=== PATIENT | male | born 1955 | race Two or more races ===

== ENCOUNTER 2020-04-02 12:09 | Inpatient (IN) | payer MEDICAID, OTHER ==
[~2020-04-02] VITALS: Ht 160 cm; Wt 65.0 kg
[2020-04-02 13:40] LABS: Eosinophils # (auto) 0 10 ^3/uL (0-0.8); Hemoglobin 14.7 g/dL (13.5-17.5); Lymphocytes # (auto) 1.1 10 ^3/uL (0.4-5.4); Mean Corpuscular Hemoglobin 34.9 pg (28.0-32.0); Monocytes # (auto) 0.6 10 ^3/uL (0-1.3); Neutrophils # (auto) 4.4 10 ^3/uL (1.6-8.6); Nucleated Red Blood Cells % 0.1 %; White Blood Cell 6.1 10^3/uL (4.4-10.8)
[2020-04-02 13:42] LABS: Basophils # (auto) 0.1 10 ^3/uL (0-0.2); Basophils % (auto) 1.3 % (0.0-2.0); Eosinophils % (auto) 0.5 % (0.0-7.0); Hematocrit 42.7 % (41.0-53.0); Lymphocytes % (auto) 17.4 % (10.0-50.0); Mean Corpuscular Hgb Conc. 34.3 g/dL (32.0-36.0); Mean Corpuscular Volume 101.9 fL (80.0-100.0); Monocytes % (auto) 9.3 % (0.0-12.0); Neutrophils % (auto) 71.5 % (37.0-80.0); Platelet Count (auto) 126 10^3/uL (140-450); Red Blood Cells 4.19 10^6/uL (4.5-5.90); Red Cell Distribution Width 14.1 % (11.8-14.3)
[2020-04-02 14:03] LABS: Alanine Aminotransferase 77 U/L (16-61); Albumin 3.5 g/dL (3.4-5.0); Anion Gap 7 (5-15); Aspartate Aminotransferase 94 U/L (15-37); BUN/Creatinine Ratio 14.1; Blood Urea Nitrogen 9 mg/dL (7-18); Calcium 8.1 mg/dL (8.5-10.1); Carbon Dioxide 27 mmol/L (21-32); Chloride 106 mmol/L (98-107); GFR African American 161 mL/min; GFR Non-African American 133 mL/min; Glucose 99 mg/dL (74-106); Magnesium 2.3 mg/dL (1.6-2.6); Potassium 3.7 mmol/L (3.5-5.1); Sodium 140 mmol/L (136-145)
[2020-04-02 14:07] LABS: Alkaline Phosphatase 91 U/L (45-117); Bilirubin, Total 1.1 mg/dL (0.2-1.0); Total Protein 6.9 g/dL (6.4-8.2)
[2020-04-02 15:18] LABS: Urine Bacteria NONE SEEN /hpf (None Seen); Urine Blood Negative /uL (Negative); Urine Mucus FEW (None Seen); Urine WBC 2 /hpf (0 - 3)
[2020-04-02] MEDS ORDERED: CALCIUM GLUC 4.65meq/50ml D5AE 50 ML IV ONE (16:45)
[2020-04-02] MEDS ORDERED: NITROGLYCERIN 0.4 MG SL TAB SL PRN ×2 (16:45→17:00)
[2020-04-02] MEDS ORDERED: MORPHINE SULF INJ 2 MG/ML SYRINGE 1ML IV PRN ×3 (16:45→17:00)
[2020-04-02] MEDS ORDERED: PANTOPRAZOLE 40 MG/10 ML VIAL INJ IV ONE (17:00)
[2020-04-02] MEDS ORDERED: hydrALAZINE HCL 20 MG/ML VL IV PRN (17:00)
[2020-04-02] MEDS ORDERED: FOLIC ACID 1 MG TAB PO ONE (17:00)
[2020-04-02] MEDS ORDERED: ONDANSETRON HCL 4 MG/2 ML VIAL IV PRN (17:00)
[2020-04-02] MEDS ORDERED: LORazepam 0.5 MG TAB PO PRN (17:00)
[2020-04-02] MEDS ORDERED: MULTIPLE VITAMINS W/ MINERALS TAB PO ONE (17:00)
[2020-04-02] MEDS ORDERED: HYDROcodone-ACET 5/325MG TAB PO PRN (17:00)
[2020-04-02] MEDS ORDERED: DOCUSATE SOD 100 MG CAP PO PRN (17:00)
[2020-04-02] MEDS ORDERED: ACETAMINOPHEN 325 MG TAB PO PRN (17:00)
[2020-04-02] MEDS ORDERED: THIAMINE HCL 100 MG TAB PO ONE (17:00)
[2020-04-02] MEDS: SUCRALFATE 1 GM TAB PO SCH ×2 (17:37→21:27)
--- NOTE | 2020-04-02 20:30 | NUR ---
Telemetry admit from [facility] admitted to Telemetry unit after SBAR received. Patient oriented to Haven Denise RN primary RN, unit, room, bed, and unit policies regarding patient care and visiting hours. Patient now on continuous telemetry monitoring, tele box #2. Patient weighed by bedscale and encouraged to call if they need something. All questions and concerns addressed, patient verbalized understanding. Bed is in lowest locked position with bed rails up x2 and call light is within reach of the patient. Bed alarm is armed.
[2020-04-02 20:39] LABS: Cholesterol 129 mg/dL (< 200); HDL Cholesterol 66 mg/dL (40-59); LDL Cholesterol 61 mg/dL (< 100); Triglycerides 82 mg/dL (< 150)
[2020-04-02] MEDS ORDERED: ASPI-543 PO (21:24)
[2020-04-02] MEDS: ATORVASTATIN 20 MG TAB PO SCH (21:27)
[2020-04-02 22:00] VITALS: BP 143/69
[2020-04-02] MEDS ORDERED: PNEUMOCOCCAL VACC POLYS 25 MCG/0.5 ML VIAL IM ONE (22:30)
[2020-04-02] MEDS ORDERED: INFLUENZA QUAD 2020-2021 0.5 ML SYRG IM ONE (22:30)
[2020-04-03 01:10] LABS: Urine Amorphous Crystal FEW /hpf (None Seen); Urine Bacteria FEW /hpf (None Seen); Urine Blood Negative /uL (Negative); Urine Specific Gravity 1.007 (1.001-1.035); Urine WBC 1 /hpf (0 - 3)
[2020-04-03 01:21] LABS: Alcohol, Urine < 3.0 mg/dL (0-10); Amphetamine Screen, Urine NEGATIVE (NEGATIVE); Barbiturate Scree,Urine NEGATIVE (NEGATIVE); Benzodiazephine Screen, Urine NEGATIVE (NEGATIVE); Cannabinoid Screen, Urine NEGATIVE (NEGATIVE); Cocaine Screen, Urine NEGATIVE (NEGATIVE); Opiate Scree,Urine NEGATIVE (NEGATIVE); Phencyclidine Screen, Urine NEGATIVE (NEGATIVE)
--- NOTE | 2020-04-03 03:08 | NUR ---
Patient transferred out: Patient transferred out to room 251A after report given to Mindi FRANCIS. Patient transferred via wheel chair with all of patients belongings and tolerated well.
[2020-04-03 05:00] VITALS: BP 136/83
[2020-04-03] MEDS: SUCRALFATE 1 GM TAB PO SCH ×4 (06:23→21:52)
--- NOTE | 2020-04-03 07:30 | NUR ---
Opening Shift Note Assumed care of patient, awake and alert. No S/S of distress/SOB or pain. Patient reports smoking for 20 years about 1/2 cigarettes a day. Educated on the benefits of smoking cessation and the risks involved with cigarette use. Patient verbalized understanding and appeared to be surprised by the information. Instructed on POC and to call for assist PRN. Will continue to reinforce teaching throughout the day. Bed is in lowest position and the call light is within reach of the patient. Will continue to monitor for changes Q1hr and PRN.
[2020-04-03 08:00] VITALS: BP 134/77
[2020-04-03 09:30] VITALS: BP 134/77
[2020-04-03] MEDS: FOLIC ACID 1 MG TAB PO SCH (10:19)
[2020-04-03] MEDS: ENOXAPARIN SOD 40 MG/0.4 ML SYRINGE SC SCH (10:19)
[2020-04-03] MEDS: ASPirin 81 mg TAB PO SCH (10:19)
[2020-04-03] MEDS: PANTOPRAZOLE 40 MG/10 ML VIAL INJ IV SCH (10:19)
[2020-04-03] MEDS: THIAMINE HCL 100 MG TAB PO SCH (10:20)
[2020-04-03] MEDS: NIFEdipine ER 30 MG TAB PO SCH (10:20)
[2020-04-03] MEDS: MULTIPLE VITAMINS W/ MINERALS TAB PO SCH (10:20)
--- NOTE | 2020-04-03 12:25 | NUR ---
ASSUMED CARE RECEIVED REPORT FROM KOSTA FRANCIS. WILL CONTINUE CARE.
--- NOTE | 2020-04-03 12:35 | NUR ---
AT BEDSIDE DR GUEVARA AT BEDSIDE ROUNDING ON PATIENT
--- NOTE | 2020-04-03 12:37 | NUR ---
Handoff Report given to Liat.
[2020-04-03 12:57] VITALS: BP 144/79
--- NOTE | 2020-04-03 15:26 | NUR ---
SPOKE WITH MD PATIENT C/O RIGHT SIDED CHEST PAIN THAT IS WORSE WHEN HE BREATHES. SPOKE TO DR GUEVARA. ORDERS FOR AN EKG OBTAINED. WILL CARRY OUT AND CONTINUE CARE
--- NOTE | 2020-04-03 15:31 | NUR ---
ss consult Per consult advanced directive info. Patient has been provided with advanced directive. Addendum: 04/03/20 at 1532 by Jessie TELLO Amended: Links added.
--- NOTE | 2020-04-03 15:46 | NUR ---
EKG EKG OBTAINED AND PLACED IN CHART. RIGHT-SIDED CHEST PAIN LASTED APPROXIMATELY TEN MINUTES PER PATIENT. DR GUEVARA NOTIFIED OF EKG INTERPRETATION. AWAITING CARDIOLOGY CONSULT. WILL CONTINUE TO MONITOR Q1H AND PRN.
[2020-04-03 17:01] VITALS: BP 128/71
--- NOTE | 2020-04-03 19:15 | NUR ---
OPENING SHIFT NOTE Assumed care of patient who is alert and oriented, currently on RA with no S/S of distress or SOB noted at this time. POC discussed with patient, all questions answered and patient verbalized understanding. Bed in lowest position, locked, side rials up x2. Call light within reach, patient encouraged to call for assistance as needed. Will continue to monitor PRN/Q1hr.
[2020-04-03] MEDS: ATORVASTATIN 20 MG TAB PO SCH (21:52)
[2020-04-03 22:00] VITALS: BP 123/71
[2020-04-04 05:50] VITALS: BP 115/71
[2020-04-04] MEDS: SUCRALFATE 1 GM TAB PO SCH ×4 (06:30→22:00)
--- NOTE | 2020-04-04 07:00 | NUR ---
Opening Shift Note Assumed care of patient, awake and alert watching TV upon entering the room. No S/S of distress/SOB or pain. 300 mL of urine noted in the urinal. Instructed on POC and to call for assist PRN. Bed is in lowest position and the call light is within reach of the patient. Will continue to monitor for changes Q1hr and PRN.
[2020-04-04 07:11] LABS: Eosinophils # (auto) 0.1 10 ^3/uL (0-0.8); Neutrophils # (auto) 3.1 10 ^3/uL (1.6-8.6); Nucleated Red Blood Cells % 0.1 %
[2020-04-04 07:12] LABS: Basophils # (auto) 0.1 10 ^3/uL (0-0.2); Basophils % (auto) 1.4 % (0.0-2.0); Eosinophils % (auto) 1.1 % (0.0-7.0); Hematocrit 43.7 % (41.0-53.0); Hemoglobin 14.9 g/dL (13.5-17.5); Lymphocytes # (auto) 0.9 10 ^3/uL (0.4-5.4); Mean Corpuscular Hemoglobin 34.8 pg (28.0-32.0); Mean Corpuscular Volume 102.3 fL (80.0-100.0); Monocytes # (auto) 0.7 10 ^3/uL (0-1.3); Monocytes % (auto) 13.8 % (0.0-12.0); Neutrophils % (auto) 64.7 % (37.0-80.0); Platelet Count (auto) 117 10^3/uL (140-450); Red Blood Cells 4.28 10^6/uL (4.5-5.90); Red Cell Distribution Width 13.9 % (11.8-14.3); White Blood Cell 4.9 10^3/uL (4.4-10.8)
--- NOTE | 2020-04-04 07:18 | NUR ---
CARE ENDORSED TO KOSTA FRANCIS
[2020-04-04 07:32] LABS: Calcium 8.4 mg/dL (8.5-10.1); Potassium 3.5 mmol/L (3.5-5.1)
[2020-04-04 07:34] LABS: BUN/Creatinine Ratio 18.2
[2020-04-04 08:00] VITALS: BP 115/71
[2020-04-04 08:55] VITALS: BP 119/69
[2020-04-04] MEDS: ASPirin 81 mg TAB PO SCH (10:47)
[2020-04-04] MEDS: PANTOPRAZOLE 40 MG/10 ML VIAL INJ IV SCH (10:47)
[2020-04-04] MEDS: FOLIC ACID 1 MG TAB PO SCH (10:49)
[2020-04-04] MEDS: NIFEdipine ER 30 MG TAB PO SCH (10:49)
[2020-04-04] MEDS: MULTIPLE VITAMINS W/ MINERALS TAB PO SCH (10:49)
[2020-04-04] MEDS: THIAMINE HCL 100 MG TAB PO SCH (10:49)
[2020-04-04] MEDS: ENOXAPARIN SOD 40 MG/0.4 ML SYRINGE SC SCH (10:50)
[2020-04-04 12:45] VITALS: BP 122/69
--- NOTE | 2020-04-04 15:34 | NUR ---
IV insertion IV access obtained, via clean sterile technique by inserting 20 gauge catheter in the right forearm after 1 attempt. IV secured properly. No trauma to site. Patient tolerated procedure well. Placed for stress test.
--- NOTE | 2020-04-04 16:50 | NUR ---
Echo at bedside Echo at bedside. Patient tolerating test well.
[2020-04-04 16:53] VITALS: BP 113/69
[2020-04-04 22:00] VITALS: BP 128/71
[2020-04-04] MEDS: ATORVASTATIN 20 MG TAB PO SCH (22:00)
[2020-04-05 05:00] VITALS: BP_SYST 115; BP_SYST 121; BP_DIAS 70; BP_DIAS 73
[2020-04-05] MEDS: SUCRALFATE 1 GM TAB PO SCH ×4 (07:23→22:49)
--- NOTE | 2020-04-05 07:53 | NUR ---
Opening Shift Note Assumed care of patient, awake and alert, A/O X 4. No S/S of distress/SOB or pain. Instructed on POC and to call for assist PRN. Patient verbalized understanding. Bed is in lowest position and the call light is within reach of the patient. Will continue to monitor for changes Q1hr and PRN.
[2020-04-05 08:30] VITALS: BP 125/69
[2020-04-05] MEDS: FOLIC ACID 1 MG TAB PO SCH (09:27)
[2020-04-05] MEDS: PANTOPRAZOLE 40 MG/10 ML VIAL INJ IV SCH (09:27)
[2020-04-05] MEDS: ENOXAPARIN SOD 40 MG/0.4 ML SYRINGE SC SCH (09:27)
[2020-04-05] MEDS: MULTIPLE VITAMINS W/ MINERALS TAB PO SCH (09:28)
[2020-04-05] MEDS: NIFEdipine ER 30 MG TAB PO SCH (09:28)
[2020-04-05] MEDS: ASPirin 81 mg TAB PO SCH (09:28)
[2020-04-05] MEDS: THIAMINE HCL 100 MG TAB PO SCH (09:29)
--- NOTE | 2020-04-05 10:21 | NUR ---
Jasvir from Stress lab to see patient Jasvir from the stress lab was up to see the patient regarding a stress test. Patient verbalized that he has yet to see a doctor and would like to speak with one prior to the procedure. Jasvir was updated that a front end developer has not come to see the patient since admission. He verbalized understanding and suggested to withhold dinner and breakfast tomorrow morning in the event the patient consents to the procedure.
--- NOTE | 2020-04-05 11:14 | NUR ---
Dr. Chance at bedside Doctor Meron at bedside discussing the POC with the patient including a stress test scheduled for tomorrow, US carotid study scheduled for today and NPO status. Patient's pharmacy will be contacted to reconcile home meds. Doctor ordered to resume home BP medication.
[2020-04-05] MEDS ORDERED: AMLO5TAB15 PO (11:29)
[2020-04-05] MEDS ORDERED: METO25TA5 PO (11:29)
--- NOTE | 2020-04-05 11:42 | NUR ---
Pharmacy contacted [facility] on [facility] and [facility] contacted, spoke with Andria in pharmacy confirming metoprolol 12.5 MG PO BID and Amlodipine 10 MG PO once a day. Orders put in and meds reconciled.
[2020-04-05] MEDS ORDERED: amLODIPine BESYLATE 5 MG TAB PO ONE (11:45)
--- NOTE | 2020-04-05 11:56 | NUR ---
Nutrition Assessment Est energy needs [id number] kcal (20-25 kcal/kg BW 65.5kg) Est protein needs 52-66g (0.8-1g/kg BW 65.5kg) Will monitor and reassess prn. Addendum: 04/05/20 at [address] Amended: Links added.
[2020-04-05 12:13] VITALS: BP 121/72
[2020-04-05] MEDS ORDERED: ARTIFICIAL TEARS 15ml EACHEYE PRN (14:45)
[2020-04-05 16:50] VITALS: BP 116/66
[2020-04-05 22:00] VITALS: BP 115/67
[2020-04-05] MEDS: METOPROLOL TARTRATE 25 MG TAB PO SCH (22:00)
[2020-04-05] MEDS: ATORVASTATIN 20 MG TAB PO SCH (22:49)
[2020-04-06 05:00] VITALS: BP 110/68
[2020-04-06 06:24] LABS: Basophils # (auto) 0 10 ^3/uL (0-0.2); Eosinophils # (auto) 0.1 10 ^3/uL (0-0.8); Eosinophils % (auto) 2.6 % (0.0-7.0); Hemoglobin 14.6 g/dL (13.5-17.5); INR 1.05 (0.9-1.15); Monocytes # (auto) 0.7 10 ^3/uL (0-1.3)
[2020-04-06 06:27] LABS: Basophils % (auto) 0.6 % (0.0-2.0); Hematocrit 42.5 % (41.0-53.0); Mean Corpuscular Hgb Conc. 34.5 g/dL (32.0-36.0); Mean Corpuscular Volume 101.6 fL (80.0-100.0); Monocytes % (auto) 13.8 % (0.0-12.0); Neutrophils # (auto) 3.2 10 ^3/uL (1.6-8.6); Platelet Count (auto) 114 10^3/uL (140-450); Red Blood Cells 4.18 10^6/uL (4.5-5.90); Red Cell Distribution Width 13.7 % (11.8-14.3); White Blood Cell 5.1 10^3/uL (4.4-10.8)
[2020-04-06 06:32] LABS: Chloride 111 mmol/L (98-107); Potassium 3.9 mmol/L (3.5-5.1); Sodium 141 mmol/L (136-145)
[2020-04-06 06:45] LABS: Anion Gap 5 (5-15); BUN/Creatinine Ratio 22.4; Blood Urea Nitrogen 17 mg/dL (7-18); Calcium 8.5 mg/dL (8.5-10.1); Carbon Dioxide 25 mmol/L (21-32); GFR African American 132 mL/min; GFR Non-African American 109 mL/min; Glucose 99 mg/dL (74-106)
[2020-04-06] MEDS: SUCRALFATE 1 GM TAB PO SCH ×4 (07:00→22:59)
[2020-04-06] MEDS ORDERED: ADENOSINE 55 MG in GIVE UN-DILUTED 0 ML IV STA (08:36)
[2020-04-06 08:41] VITALS: BP 125/70
[2020-04-06] MEDS: METOPROLOL TARTRATE 25 MG TAB PO SCH ×2 (10:00→23:01)
[2020-04-06] MEDS: PANTOPRAZOLE 40 MG/10 ML VIAL INJ IV SCH (10:00)
[2020-04-06 10:19] VITALS: BP 116/76
[2020-04-06] MEDS: FOLIC ACID 1 MG TAB PO SCH (11:25)
[2020-04-06] MEDS: MULTIPLE VITAMINS W/ MINERALS TAB PO SCH (11:25)
[2020-04-06] MEDS: ASPirin 81 mg TAB PO SCH (11:26)
[2020-04-06] MEDS: NIFEdipine ER 30 MG TAB PO SCH (11:27)
[2020-04-06] MEDS: ENOXAPARIN SOD 40 MG/0.4 ML SYRINGE SC SCH (11:28)
[2020-04-06] MEDS: THIAMINE HCL 100 MG TAB PO SCH (11:32)
[2020-04-06 13:00] VITALS: BP 140/75
--- NOTE | 2020-04-06 16:02 | NUR ---
AT BEDSIDE DR CLOUD AT BEDSIDE ROUNDING ON PATIENT. PATIENT IS CLEARED FROM CARDIOLOGY PERSPECTIVE.
[2020-04-06 17:00] VITALS: BP 122/71
--- NOTE | 2020-04-06 17:40 | NUR ---
IV removal IV DC'd with sterile technique, catheter fully intact. Pressure dressing applied to site. Patient tolerated procedure well. Discharged with aftercare instructions per MD. NOTE: pt had bumped iv and tape and gauze off.
[2020-04-06] MEDS: ATORVASTATIN 20 MG TAB PO SCH (23:00)
[2020-04-06 23:01] VITALS: BP 117/67
[2020-04-07 05:33] VITALS: BP 117/71
[2020-04-07 07:22] LABS: Basophils # (auto) 0 10 ^3/uL (0-0.2); Lymphocytes # (auto) 1.3 10 ^3/uL (0.4-5.4)
[2020-04-07 07:26] LABS: Basophils % (auto) 0.4 % (0.0-2.0); Eosinophils # (auto) 0.2 10 ^3/uL (0-0.8); Hematocrit 43.1 % (41.0-53.0); Lymphocytes % (auto) 17.1 % (10.0-50.0); Mean Corpuscular Hemoglobin 35.3 pg (28.0-32.0); Mean Corpuscular Hgb Conc. 34.7 g/dL (32.0-36.0); Mean Corpuscular Volume 101.6 fL (80.0-100.0); Neutrophils % (auto) 67.5 % (37.0-80.0); Nucleated Red Blood Cells % 0.1 %; Platelet Count (auto) 120 10^3/uL (140-450); Red Blood Cells 4.24 10^6/uL (4.5-5.90); Red Cell Distribution Width 13.6 % (11.8-14.3); White Blood Cell 7.4 10^3/uL (4.4-10.8)
[2020-04-07 07:53] LABS: Calcium 8.6 mg/dL (8.5-10.1); Potassium 3.9 mmol/L (3.5-5.1)
[2020-04-07 07:56] LABS: BUN/Creatinine Ratio 24.1
[2020-04-07] MEDS: SUCRALFATE 1 GM TAB PO SCH ×2 (08:04→11:56)
[2020-04-07 09:00] VITALS: BP 115/68
[2020-04-07] MEDS: METOPROLOL TARTRATE 25 MG TAB PO SCH (10:00)
[2020-04-07] MEDS: MULTIPLE VITAMINS W/ MINERALS TAB PO SCH (10:07)
[2020-04-07] MEDS: NIFEdipine ER 30 MG TAB PO SCH (10:07)
[2020-04-07] MEDS: FOLIC ACID 1 MG TAB PO SCH (10:08)
[2020-04-07] MEDS: ENOXAPARIN SOD 40 MG/0.4 ML SYRINGE SC SCH (10:10)
[2020-04-07] MEDS: PANTOPRAZOLE 40 MG/10 ML VIAL INJ IV SCH (10:10)
[2020-04-07] MEDS: ASPirin 81 mg TAB PO SCH (10:26)
[2020-04-07] MEDS: THIAMINE HCL 100 MG TAB PO SCH (10:28)
--- NOTE | 2020-04-07 12:23 | NUR ---
pt has no complaints. ambulating in halls. eating et drinking well. voiding without difficulty, reports bm this am. oriented x's 4. resting at this time.
[2020-04-07 13:00] VITALS: BP 121/70
[2020-04-07] MEDS ORDERED: ATOR20TA50 PO (15:21)
--- NOTE | 2020-04-07 16:05 | NUR ---
Assessment Patient is a 65-year-old male, who is alert and oriented. Patient cognitive abilities are intact. Patient stated that he can do all ADLs and ambulate independently. Patient stated that he felt dizzy when picking up his prescription from [facility]. Patient stated that he has no known diagnoses of high blood pressure. Patient stated that he lives alone, patient stated that he will return home post discharge. Patient stated that he is employed. Patient stated that his friend Candice has transportation for post discharge. Patient stated that his friend Candice ([phone]) is his support system. Patient stated that he is receptive on receiving information about Advance Directive. Discharge planning: SW provided Advance Directive to patient in Thai. Patient will follow up with his PCP post discharge for his inpatient diagnoses. Patient has no post discharge needs at the moment. Addendum: 04/07/20 at 1606 by EDUARDA SCHERER SS Amended: Links added.
[2020-04-07 17:00] VITALS: BP 129/76
--- NOTE | 2020-04-07 17:59 | NUR ---
Discharge instructions given as ordered. Encourage to follow up with PMD as instructed. All questions and concerns addressed. Patient verbalized understanding. Medication reconciliation form completed and copy given to patient. IV removed with catheter intact, pressure dressing applied. Telemetry unit returned to ICU. Patient taken to vehicle via wheelchair with all personal belongings, accompanied by staff and family member. No distress noted at time of departure. pt picked up Meds at pharmacy before dc.
== END 2020-04-07 16:47 | disposition home or self-care (01) | DRG 199 ==
LOC: ER 12:09 → EDBD 12:09 → OBSVTOIN 12:10 → TELE 12:10 → TELE-EAST 20:30
PROVIDERS: ADMIT Family Medicine; ATTEND Internal Medicine Pulmonary Disease
DX: I16.0 Hypertensive urgency (principal); D69.59 Other secondary thrombocytopenia; R55 Syncope and collapse; Z20.828 Contact with and (suspected) exposure to other viral communicable diseases; D75.89 Other specified diseases of blood and blood-forming organs; R79.89 Other specified abnormal findings of blood chemistry; K70.10 Alcoholic hepatitis without ascites; I10 Essential (primary) hypertension; K29.20 Alcoholic gastritis without bleeding; E78.5 Hyperlipidemia, unspecified; F10.10 Alcohol abuse, uncomplicated; H40.9 Unspecified glaucoma; F17.210 Nicotine dependence, cigarettes, uncomplicated; Z71.6 Tobacco abuse counseling; Z86.73 Personal history of transient ischemic attack (TIA), and cerebral infarction without residual deficits; Z82.49 Family history of ischemic heart disease and other diseases of the circulatory system
CPT/HCPCS: 36415; 70450; 71045; 78452; 80048; 80053; 80061; 80307; 81001; 83036; 83735; 83880; 84443; 84484; 85025; 85610; 87040; 87086; 93005; 93017; 93306; 93886; 96365; 96375; C9113; G0378; J0153; J0610